=== PATIENT | female | born 1980 | race Caucasian/White ===

== ENCOUNTER 2016-09-05 23:23 | Emergency (ER) | payer OTHER ==
[~2016-09-05] VITALS: Ht 170.2 cm; Wt 79.4 kg
[2016-09-05 23:27] VITALS: BP 122/78
--- NOTE | 2016-09-06 00:15 | NUR ---
36Y F BIB FRIEND C/O PAIN TO RT ANKLE AREA WHILE PLAYING SOCCER. PAIN IS 10/10 IN SCALE.
--- NOTE | 2016-09-06 00:17 | NUR ---
BIB WHEELCHAIR TO ER
[2016-09-06] MEDS ORDERED: KETOROLAC 60 MG/2 ML VIAL IM ONE (00:20)
[2016-09-06 00:55] VITALS: BP 122/78
--- NOTE | 2016-09-06 00:55 | NUR ---
Patient discharged with v/s stable. Written and verbal after care instructions given and explained. Patient alert, oriented and verbalized understanding of instructions. Ambulatory with CRUTCHES. All questions addressed prior to discharge. ID band removed. Patient advised to follow up with PMD. Rx of MOTRIN AND TYLENOL #3 given. Patient educated on indication of medication including possible reaction and side effects. Opportunity to ask questions provided and answered.
== END 2016-09-06 00:55 | disposition home or self-care (01) ==
LOC: MED 23:23
DX: S82.831A Other fracture of upper and lower end of right fibula, initial encounter for closed fracture (principal); R03.0 Elevated blood-pressure reading, without diagnosis of hypertension; W01.0XXA Fall on same level from slipping, tripping and stumbling without subsequent striking against object, initial encounter; Y93.89 Activity, other specified; Y92.89 Other specified places as the place of occurrence of the external cause; Y99.8 Other external cause status
CPT/HCPCS: 29515; 73610; 81002; 96372; 99284; J1885